=== PATIENT | female | born 1970 | race Caucasian/White ===

== ENCOUNTER → 2024-05-03 | Outpatient (CLI) | payer OTHER ==
[~2024-05-03] MED LIST: Bactrim Ds Tab1 EACH PO; CEPH500 PO; SERT100 PO; SYNTHROID112 MCG PO
[2024-05-07 01:56] LABS: C. TRACHOMATIS BY TMA,THINPREP Negative (Negative); N. GONORRHOEAE BY TMA,THINPREP Negative (Negative); SPECIMEN SOURCE Cervical
[2024-05-17 08:21] LABS: HPV HIGH RISK BY TMA Not Detected; HPV SOURCE Cervical
== END | disposition home or self-care (01) ==
LOC: LAB 17:30 → LAB SHORT 17:30
PROVIDERS: Nurse Practitioner Family
DX: Z12.4 Encounter for screening for malignant neoplasm of cervix (principal)
CPT/HCPCS: 87491; 87591; 87624; G0123

== ENCOUNTER 2024-11-02 16:34 | Emergency (ER) | payer OTHER ==
[~2024-11-02] VITALS: Ht 157.5 cm; Wt 136.1 kg
[2024-11-02 17:40] VITALS: BP 162/116
[2024-11-02] MEDS ORDERED: OxyCODONE 5 mg/Acetamin 325 mg TABLET PO ONE (17:50)
[2024-11-02] MEDS ORDERED: HYDR1TAB94 PO (18:01)
[2024-11-02] MEDS ORDERED: Ibuprofen600 MG PO (18:01)
== END 2024-11-02 18:20 | disposition home or self-care (01) ==
LOC: ER 16:34
DX: T20.25XA Burn of second degree of scalp [any part], initial encounter (principal); X08.8XXA Exposure to other specified smoke, fire and flames, initial encounter; F17.210 Nicotine dependence, cigarettes, uncomplicated; Z79.890 Hormone replacement therapy; Z79.899 Other long term (current) drug therapy
CPT/HCPCS: 99283; A9270